=== PATIENT | male | born 1960 | race Caucasian/White ===

== ENCOUNTER 2017-02-21 10:26 | Emergency (ER) | payer SELFPAY ==
[2017-02-21] MEDS ORDERED: KETOROLAC TROMETHAMINE 60 MG/2 ML VIAL IM ONE ×2 (10:43→10:58)
[2017-02-21] MEDS ORDERED: ONDANSETRON 4 MG TAB.RAPDIS PO ONE (10:43)
[2017-02-21] MEDS ORDERED: ORPHENADRINE CITRATE 30 MG/ML VIAL IM ONE (10:43)
[2017-02-21] MEDS ORDERED: ONDANSETRON 4 MG TAB.RAPDIS ONE (10:58)
[2017-02-21] MEDS ORDERED: ONDANSETRON HCL 8 MG TABLET ONE (10:58)
[2017-02-21] MEDS ORDERED: ORPHENADRINE CITRATE 30 MG/ML VIAL ONE (10:59)
--- NOTE | 2017-02-21 10:59 | ERNOTE ---
Back Pain ER HPI Presenting Symptoms: hx chronic back pain Time Seen by Provider: 02/21/17 10:37 Source: patient Exam Limitations: no limitations Allergies/Adverse Reactions: Allergies No Known Allergies Allergy (Verified 02/21/17 10:34) Home Medications: HOME MEDICATIONS Cyclobenzaprine HCl [Flexeril] 10 mg PO TID PRN #30 tab 02/21/17 [Last Taken Unknown] Naproxen [Naprosyn] 500 mg PO BID #60 tablet 02/21/17 [Last Taken Unknown] Narrative: The patient admits to having chronic back pain however he started to notice bilateral flank pain that was left greater than right. He's had some vomiting with the pain and that he describes the pain as being crampy in nature. He states the pain is at least moderate in intensity. Timing: Reports: constant, intermittent Quality/Severity: Reports: moderate Location of pain: Reports: lower back, other - and both flanks left greater than right Activities at Onset: Reports: none Recent Injury?: Reports: no Modifying Factors - (Improves): Reports: nothing Modifying Factors - (Worsens): Reports: nothing Review of Systems - Review of Systems Constitutional: Present: See HPI EYE: Present: no symptoms reported ENT: Present: no symptoms reported Respiratory: Present: no symptoms reported Cardiology: Present: no symptoms reported Gastrointestinal/Abdominal: Present: vomiting Genitourinary: Present: no symptoms reported Musculoskeletal: Present: See HPI Skin: Present: no symptoms reported Neurological: Present: no symptoms reported Endocrine: Present: no symptoms reported Hematologic/Lymphatic: Present: no symptoms reported Psych: Present: no symptoms reported - Patient's Past Medical History Patient History - Medical: Chronic Pain, Other - chronic back pain Patient History - Cardiac/Respiratory: No pertinent hx Patient History - Cancer: No Hx of Cancer Patient History - Other: None - Social History Living Situations: home Psych History: No pertinent hx Alcohol Use: none Drug Use: none Physical Exam - Physical Exam General Appearance: Present: wd/wn, alert, moderate distress Eye Exam: Normal inspection: bilateral, PERRL: bilateral Ears, Nose, Throat: Present: normal ENT inspection, H, normal pharynx Neck: Present: normal inspection, nontender Respiratory: Present: no respiratory distress, normal breath sounds, no accessory muscle use, chest nontender, lungs clear Cardiovascular/Chest: Present: regular rate, rhythm, no murmur, normal peripheral pulses Gastrointestinal/Abdominal: Present: normal bowel sounds, nontender, nondistended, soft, no organomegaly, other - chronically morbidly obese Rectal Exam: Present: deferred Back Exam: Present: CVA tenderness (R), CVA tenderness (L) Extremity Exam: Present: normal inspection, non-tender, no edema, normal range of motion Neurological Exam: Present: alert, oriented, normal mood/affect Skin Exam: Present: normal color, warm/dry Lymphatic Exam: Present: no adenopathy ED Progress - Results and Orders Patient's Lab Results:: I have reviewed the patient's lab results. - Vital Signs Patient's Vital Signs:: I have reviewed the patient's vital signs. Vital Signs: Vital Signs 02/21/17 10:31 Temperature 36.4 C L Pulse Rate 78 Respiratory 12 Rate Blood Pressure 186/88 O2 Sat by Pulse 98 Oximetry - X-Ray X-Ray #1 X-Ray: abdomen Interpretation: Interp. by me - Progress/Reassessment Chief Complaint: Back Pain Plan - Plan Plan: Patient has chronic low back pain and this appears to be an exacerbation of that. He started on Flexeril and Naprosyn and he agrees to follow-up with his family physician this week for ongoing care. Patient was improved after having received an injection of Toradol and Norflex Departure Clinical Impression: Low back pain Qualifiers: Chronicity: chronic Back pain laterality: bilateral Sciatica presence: without sciatica Qualified Code(s): M54.5 - Low back pain; G89.29 - Other chronic pain - Departure Disposition: Home self-care Condition: Good Instructions: Chronic Pain, Back Pain, Adult Referrals: Amirah Hobbs MD [Primary Care Provider] - Prescriptions: Cyclobenzaprine HCl [Flexeril] 10 mg PO TID PRN #30 tab PRN Reason: MUSCLE SPASMS Naproxen [Naprosyn] 500 mg PO BID #60 tablet
[2017-02-21 11:02] LABS: Urine Bilirubin Negative (NEGATIVE); Urine Blood Negative /ul (NEGATIVE); Urine Ketone 15 mg/dL (NEGATIVE); Urine Nitrite Negative (NEGATIVE); Urine Protein 30 mg/dL (NEGATIVE); Urine Specific Gravity 1.025 SP.GR. (1.005-1.030); Urine Urobilinogen Normal (NORMAL); Urine pH 7.5 pH (5.0-7.0)
[2017-02-21 11:08] LABS: Urine Appearance Clear; Urine Bacteria None Seen; Urine Color Yellow; Urine RBC None Seen /hpf (0-5); Urine WBC 0-5 /hpf (0-5)
[2017-02-21 13:18] VITALS: BP 164/81
== END 2017-02-21 12:40 | disposition home or self-care (01) ==
LOC: ER 10:26
DX: M54.5 Low back pain (principal); G89.29 Other chronic pain